=== PATIENT | female | born 1930 | race African-American/Black ===

== ENCOUNTER 2017-12-08 06:50 | Emergency (ER) | payer BC ==
[~2017-12-08] VITALS: Ht 157.5 cm; Wt 65.8 kg
[2017-12-08 08:07] LABS: HEMATOCRIT 29.1 % (36.0-46.0); HEMOGLOBIN 9.8 G/DL (11.9-15.5); MCH 30.7 PG (29.0-34.0); MCHC 33.7 G/DL (30.0-36.0); MCV 91.2 FL (83-99); RBC DIS.WIDTH-CV 12.4 % (11.8-14.6); RBC DIS.WIDTH-SD 41.6 % (39-53); RED BLOOD COUNT 3.19 M/uL (3.80-5.20); WHITE BLOOD COUNT 19.5 K/uL (4.1-10.2)
[2017-12-08 08:12] LABS: ALBUMIN 3.3 g/dL (3.2-4.8); CHLORIDE 97 mEq/L (99-109); POTASSIUM 4.1 mEq/L (3.7-5.4); SODIUM 134 mEq/L (136-147)
[2017-12-08 08:15] LABS: GLUCOSE 164 mg/dL (70-99); TOTAL PROTEIN 6.2 g/dL (6.4-8.3)
[2017-12-08 08:17] LABS: TOTAL BILIRUBIN 1.4 mg/dL (0.0-1.0)
[2017-12-08 08:18] LABS: ALKALINE PHOSPHATASE 120 IU/L (3-129); GFR ESTIMATE (CALCULATED) > 59 mL/min/
[2017-12-08 08:19] LABS: UREA NITROGEN (BUN) 19 mg/dL (9-23)
[2017-12-08 08:20] LABS: AST (GOT) 10 IU/L (2-34)
[2017-12-08 08:21] LABS: ALT (GPT) 4 IU/L (3-49)
[2017-12-08 08:27] LABS: TROP-I INTERPRETATION NEGATIVE; TROPONIN-I 0.03 ng/mL (0.0-0.30)
[2017-12-08 08:45] LABS: PLAT.SUFFICIENCY ADEQUATE; PLATELET COUNT 140 K/uL (156-360)
[2017-12-08] MEDS ORDERED: COREG12.5 M1 PO (11:47)
[2017-12-08] MEDS ORDERED: ATORVASTATIN CA40 MG PO (11:48)
[2017-12-08] MEDS ORDERED: COZAAR25 MG PO (11:48)
[2017-12-08] MEDS ORDERED: ANTIVERT25 MG PO (11:49)
[2017-12-08] MEDS ORDERED: HYDROCHLOROTH12.5 M3 PO (11:49)
[2017-12-08] MEDS ORDERED: PROAIR HFA8.5 GM IH (11:51)
[2017-12-08] MEDS ORDERED: ALBUTEROL0.63 MG/3 IH (11:51)
[2017-12-08] MEDS ORDERED: ASPIR 8181 M1 PO (11:52)
[2017-12-08 12:16] LABS: TROP-I INTERPRETATION NEGATIVE; TROPONIN-I 0.02 ng/mL (0.0-0.30)
[2017-12-08 13:21] VITALS: BP 111/77
== END 2017-12-08 13:22 | disposition short-term general hospital (02) ==
LOC: EME 06:50
PROVIDERS: Nurse Practitioner Family
DX: I71.3 Abdominal aortic aneurysm, ruptured (principal); I25.2 Old myocardial infarction; D72.829 Elevated white blood cell count, unspecified; N28.1 Cyst of kidney, acquired; I10 Essential (primary) hypertension; E78.5 Hyperlipidemia, unspecified; Z98.61 Coronary angioplasty status; Z95.810 Presence of automatic (implantable) cardiac defibrillator; Z85.850 Personal history of malignant neoplasm of thyroid; Z85.828 Personal history of other malignant neoplasm of skin; Z87.891 Personal history of nicotine dependence; Z79.82 Long term (current) use of aspirin; Z88.0 Allergy status to penicillin
CPT/HCPCS: 71046; 74177; 80053; 83605; 84484; 85027; 86850; 86900; 86901; 87040; 87502; 93005; 99281; 99285; J1885; J1956; J2270; J2405; J7030